=== PATIENT | male | born 1975 | race Caucasian/White ===

== ENCOUNTER 2017-02-20 16:34 | Emergency (ER) | payer BC ==
[~2017-02-20] VITALS: Ht 170.2 cm; Wt 63.5 kg
[2017-02-20] MEDS ORDERED: FAMOTIDINE 20 MG TABLET PO ONE (17:00)
[2017-02-20] MEDS ORDERED: predniSONE 10 MG TABLET PO ONE (17:00)
[2017-02-20] MEDS ORDERED: diphenhydrAMINE 50 MG CAPSULE PO ONE (17:00)
[2017-02-20] MEDS ORDERED: predniSONE 10 MG TABLET ONE (17:37)
[2017-02-20] MEDS ORDERED: FAMOTIDINE 20 MG TABLET ONE (17:37)
[2017-02-20] MEDS ORDERED: predniSONE 50 MG TABLET ONE (17:37)
[2017-02-20] MEDS ORDERED: diphenhydrAMINE 25 MG CAP PO ONE (17:37)
--- NOTE | 2017-02-20 17:46 | NUR ---
Pt states he feels much better. Written and verbal after care instructions given. Patient verbalizes understanding of instructions. Pt is waiting for his to pick him up.
--- NOTE | 2017-02-20 18:04 | NUR ---
Pt left ER in stable cond.
== END 2017-02-20 18:04 | disposition home or self-care (01) ==
LOC: ER 16:38
DX: T78.40XA Allergy, unspecified, initial encounter (principal); Y92.89 Other specified places as the place of occurrence of the external cause
CPT/HCPCS: 99284; A4663; J7512 ×2; Q0163